=== PATIENT | male | born 1975 | race Two or more races ===

== ENCOUNTER 2021-04-24 11:50 | Emergency (ER) | payer BC, OTHER ==
[~2021-04-24] VITALS: Ht 167.6 cm; Wt 70.3 kg
[2021-04-24 13:31] LABS: Basophils # (auto) 0 10 ^3/uL (0-0.2); Basophils % (auto) 0.1 % (0.0-2.0); Eosinophils # (auto) 0 10 ^3/uL (0-0.8); Eosinophils % (auto) 0.1 % (0.0-7.0); Hematocrit 49.5 % (41.0-53.0); Hemoglobin 17.1 g/dL (13.5-17.5); Lymphocytes # (auto) 0.2 10 ^3/uL (0.4-5.4); Lymphocytes % (auto) 1.6 % (10.0-50.0); Mean Corpuscular Hgb Conc. 34.6 g/dL (32.0-36.0); Mean Corpuscular Volume 89.6 fL (80.0-100.0); Monocytes # (auto) 0.4 10 ^3/uL (0-1.3); Monocytes % (auto) 2.7 % (0.0-12.0); Neutrophils % (auto) 95.5 % (37.0-80.0); Nucleated Red Blood Cells % 0.1 %; Red Blood Cells 5.53 10^6/uL (4.5-5.90); Red Cell Distribution Width 12.3 % (11.8-14.3); White Blood Cell 14.7 10^3/uL (4.4-10.8)
[2021-04-24 13:39] LABS: Albumin 4.5 g/dL (3.4-5.0)
[2021-04-24 13:45] LABS: BUN/Creatinine Ratio 17.5; Bilirubin, Total 0.5 mg/dL (0.2-1.0); Total Protein 7.9 g/dL (6.4-8.2)
[2021-04-24] MEDS ORDERED: SODIUM CHLORIDE 0.9% 1,000 ML IV ONE ×2 (14:00)
[2021-04-24] MEDS ORDERED: METR500T PO (14:50)
[2021-04-24] MEDS ORDERED: CEPH-509 PO (14:50)
[2021-04-24] MEDS ORDERED: cefTRIAXone 1GM/50ML D5W 50 ML IV ONE (15:00)
[2021-04-24] MEDS ORDERED: metroNIDAZOLE 500MG/100ML 100 ML IV ONE (15:00)
[2021-04-24 17:55] VITALS: BP 155/96
== END 2021-04-24 17:54 | disposition home or self-care (01) ==
LOC: ER 11:50
DX: K52.9 Noninfective gastroenteritis and colitis, unspecified (principal); Z88.0 Allergy status to penicillin
CPT/HCPCS: 36415; 74176; 80053; 83690; 85025; 96365; 96368; 99284; J0696; J3490; J7030